=== PATIENT | female | born 1965 | race Caucasian/White ===

== ENCOUNTER 2024-03-15 21:12 | Emergency (ER) | payer OTHER ==
[2024-03-15 21:44] VITALS: BP 168/75; PULSE 75; RESP 16; TEMP 97.3; BMI 29.9
== END 2024-03-15 22:09 | disposition home or self-care (01) ==
LOC: FER 21:12
DX: L04.0 Acute lymphadenitis of face, head and neck (principal)
CPT/HCPCS: 36415; 86618; 87651; 99283-25

== ENCOUNTER 2024-07-27 18:15 | Emergency (ER) | payer OTHER ==
[2024-07-27 18:38] VITALS: BMI 28.3
[2024-07-27 18:58] VITALS: BP 160/84; PULSE 77; RESP 18; TEMP 97.8
[2024-07-27] MEDS ORDERED: CEPHALEXIN MONOHYDRATE 500 MG CAPSULE (UD) ONE (19:54)
[2024-07-27] MEDS: CEPHALEXIN MONOHYDRATE 500 MG CAPSULE (UD) PO ONE (20:01)
== END 2024-07-27 20:02 | disposition home or self-care (01) ==
LOC: FER 18:15
DX: N39.0 Urinary tract infection, site not specified (principal)
CPT/HCPCS: 81003; 87086; 87186; 99283-25

== ENCOUNTER 2025-01-25 15:21 | Inpatient (IN) | payer OTHER ==
[2025-01-25 15:53] LABS: ABSOLUTE IMMATURE GRANULOCYTES 0.01 x10^3/uL (0.0-0.031); BASOPHILS # 0.03 x10^3/uL (0.01-0.08); EOSINOPHIL % 1.9 % (0.7-5.8); HEMATOCRIT 40.3 % (34.1-44.9); HEMOGLOBIN 13.6 g/dL (11.2-15.7); MCHC 33.7 g/dl (32.2-35.5); MEAN CELL VOLUME 88.2 fl (79.4-94.8); MEAN PLT VOLUME 9.9 fl (9.4-12.3); MONOCYTE # 0.42 x10^3/uL (0.24-0.86); MONOCYTE % 7.8 % (4.7-12.5); PLATELET COUNT 149 x10^3/uL (182-369); RDW 13.7 % (12.4-16.4)
[2025-01-25 16:14] LABS: ALBUMIN 4.6 g/dl (3.4-5.0); BILIRUBIN,TOTAL 1.2 mg/dl (0.2-1); CALCIUM 9.5 mg/dl (8.5-10.1); CREATININE 0.8 mg/dl (0.6-1.3); MAGNESIUM 1.7 mg/dL (1.8-2.4); POTASSIUM 3.6 mmol/L (3.5-5.1); TOT PROT 6.8 g/dl (6.4-8.2)
[2025-01-25] MEDS ORDERED: FAMOTIDINE 20 MG TABLET ONE (16:27)
[2025-01-25] MEDS ORDERED: ACETAMINOPHEN 500 MG TABLET (FP) ONE (16:27)
[2025-01-25] MEDS ORDERED: MAG HYDROX/AL HYDROX/SIMETH 30 ML UNIT-DOSE CUP ONE (16:27)
[2025-01-25] MEDS: ACETAMINOPHEN 500 MG TABLET (FP) PO ONE (16:31)
[2025-01-25] MEDS: FAMOTIDINE 20 MG TABLET PO ONE (16:31)
[2025-01-25] MEDS: MAG HYDROX/AL HYDROX/SIMETH -MYLANTA- ORAL SUSPENSION PO ONE (16:32)
[2025-01-25] MEDS: MAGNESIUM OXIDE 400 MG TABLET (FP) PO ONE (17:09)
[2025-01-25] MEDS ORDERED: MAGNESIUM OXIDE 400 MG TABLET (FP) ONE (17:09)
[2025-01-25] MEDS ORDERED: AMOX TR/POT CLAV 875MG/125MG TABLETS (FP) ONE (18:24)
[2025-01-25] MEDS ORDERED: AZITHROMYCIN 500 MG TABLET ONE (18:24)
[2025-01-25] MEDS: AZITHROMYCIN 250 MG TABLET PO ONE (18:27)
[2025-01-25] MEDS: AMOX TR/POT CLAV 875MG/125MG TABLETS (FP) PO ONE (18:27)
[2025-01-25 19:07] LABS: HIV INTERPRETATION NEGATIVE (NEGATIVE)
[2025-01-25 19:08] LABS: HCV DIAGNOSTIC IN-HOUSE W/RFLX NON-REACTIVE (NONREACTIVE)
[2025-01-26] MEDS: SODIUM CHLORIDE 0.9% 500 ML INFUS.BAG IV ONE (00:41)
[2025-01-26] MEDS: INSULIN ASPART SLIDING SCALE (NOVOLOG) 1 VIAL SQ SCH (08:02)
[2025-01-26] MEDS: LISINOPRIL 10 MG TABLET PO SCH (09:29)
[2025-01-26] MEDS: amLODIPine BESYLATE 5 MG TABLET (FP) PO SCH (09:29)
[2025-01-26] MEDS ORDERED: LISINOPRIL 5 MG TABLET PO SCH (10:00)
[2025-01-26] MEDS: ATORVASTATIN CA 40 MG TABLET (FP) PO SCH (21:55)
[2025-01-27 08:11] LABS: ABSOLUTE IMMATURE GRANULOCYTES 0.03 x10^3/uL (0.0-0.031); BASOPHILS # 0.02 x10^3/uL (0.01-0.08); EOSINOPHIL % 2.4 % (0.7-5.8); EOSINOPHILS # 0.12 x10^3/uL (0.04-0.36); HEMATOCRIT 40.6 % (34.1-44.9); HEMOGLOBIN 13.2 g/dL (11.2-15.7); MCHC 32.5 g/dl (32.2-35.5); MEAN CELL VOLUME 88.8 fl (79.4-94.8); MEAN PLT VOLUME 10.1 fl (9.4-12.3); MONOCYTE # 0.43 x10^3/uL (0.24-0.86); MONOCYTE % 8.6 % (4.7-12.5); PLATELET COUNT 172 x10^3/uL (182-369)
[2025-01-27 08:32] LABS: POTASSIUM 3.9 mmol/L (3.5-5.1)
[2025-01-27 08:39] LABS: CALCIUM 9.9 mg/dL (8.5-10.1)
[2025-01-27 08:40] LABS: ALBUMIN 4.2 g/dl (3.4-5.0); BLOOD UREA NITROGEN 18.4 mg/dL (7-18); MAGNESIUM 1.8 mg/dL (1.8-2.4)
[2025-01-27 08:43] LABS: CREATININE 0.7 mg/dL (0.55-1.3)
[2025-01-27 08:44] LABS: BILIRUBIN,TOTAL 1.2 mg/dL (0.2-1)
[2025-01-27 11:22] LABS: INR 1.19 (0.83-1.09)
[2025-01-27] MEDS: IOHEXOL (OMNIPAQUE PO) 12 MG/ML - 500 ML BOTTLE PO ONE (12:09)
[2025-01-27] MEDS ORDERED: FENTANYL CITRATE/PF 50 MCG/ML VIAL ONE (14:45)
[2025-01-27] MEDS ORDERED: MIDAZOLAM HCL 2 MG/2 ML SINGLE DOSE VIAL ONE (14:45)
[2025-01-27] MEDS: FENTANYL CITRATE/PF 50 MCG/ML VIAL IVPUSH ONE (15:16)
[2025-01-27] MEDS: MIDAZOLAM HCL 2 MG/2 ML SINGLE DOSE VIAL IVPUSH ONE ×2 (15:16→15:24)
[2025-01-28] MEDS ORDERED: INSULIN (NOVOLOG) ASPART 100 UNITS/ML 10ML VIAL ONE ×2 (05:21→05:22)
[2025-01-28] MEDS: MAGNESIUM OXIDE 400 MG TABLET (FP) PO SCH (10:15)
[2025-01-28 11:32] VITALS: RESP 18
[2025-01-29] MEDS ORDERED: INSULIN (NOVOLOG) ASPART 100 UNITS/ML 10ML VIAL ONE (05:31)
[2025-01-29 07:10] LABS: HEMATOCRIT 38.6 % (34.1-44.9); HEMOGLOBIN 12.9 g/dL (11.2-15.7); MCHC 33.4 g/dl (32.2-35.5); MEAN CELL VOLUME 88.5 fl (79.4-94.8); MEAN PLT VOLUME 9.9 fl (9.4-12.3); PLATELET COUNT 147 x10^3/uL (182-369); RDW 13.6 % (12.4-16.4)
[2025-01-29 07:37] LABS: POTASSIUM 3.9 mmol/L (3.5-5.1)
[2025-01-29 07:39] LABS: CALCIUM 9.5 mg/dL (8.5-10.1); MAGNESIUM 1.8 mg/dL (1.8-2.4)
[2025-01-29 07:41] LABS: ALBUMIN 3.7 g/dl (3.4-5.0); BLOOD UREA NITROGEN 17.2 mg/dL (7-18)
[2025-01-29 07:43] LABS: CREATININE 0.6 mg/dL (0.55-1.3)
[2025-01-29 07:44] LABS: TOT PROT 6.5 g/dl (6.4-8.2)
[2025-01-29 15:22] VITALS: BMI 31.2
[2025-01-29 18:30] VITALS: PULSE 90
[2025-01-29 20:51] VITALS: BP 158/79; TEMP 98.9
== END 2025-01-29 20:56 | disposition home or self-care (01) | DRG 691 ==
LOC: FER 15:21 → J7W 01-26 01:00 → FER 01-26 02:03
PROVIDERS: ADMIT Hospitalist; ATTEND Physician Assistant
PROC: 0DBV3ZX Excision of Mesentery, Percutaneous Approach, Diagnostic (ICD-10-PCS; principal; 2025-01-27)
DX: C82.83 Other types of follicular lymphoma, intra-abdominal lymph nodes (principal); J90 Pleural effusion, not elsewhere classified; R18.8 Other ascites; N28.1 Cyst of kidney, acquired; E11.9 Type 2 diabetes mellitus without complications; E78.5 Hyperlipidemia, unspecified; I10 Essential (primary) hypertension; J98.11 Atelectasis; N63.0 Unspecified lump in unspecified breast; D69.6 Thrombocytopenia, unspecified; F41.9 Anxiety disorder, unspecified; E83.42 Hypomagnesemia; E80.6 Other disorders of bilirubin metabolism; R16.1 Splenomegaly, not elsewhere classified
CPT/HCPCS: 36415; 49180; 71046-TC-FY; 74177-TC; 76705-TC; 77012-TC; 80053; 81003; 81015; 82378; 82962; 83615; 83735; 84484; 85025; 85027; 85610; 85651; 86140; 86301; 86304; 86803; 87389; 88305-TC; 93005; 99285-25; Q9967

== ENCOUNTER 2025-03-07 11:07 | Emergency (ER) | payer OTHER ==
[2025-03-07 11:17] VITALS: BP 159/69; PULSE 80; RESP 19; TEMP 97.9; BMI 29.6
[2025-03-07 12:46] LABS: HEMOGLOBIN 11.3 g/dL (11.2-15.7); MEAN PLT VOLUME 10.3 fl (9.4-12.3)
[2025-03-07 12:48] LABS: HEMATOCRIT 33.5 % (34.1-44.9); MCHC 33.7 g/dl (32.2-35.5); MEAN CELL VOLUME 88.6 fl (79.4-94.8); PLATELET COUNT 136 x10^3/uL (182-369); RDW 14.5 % (12.4-16.4)
[2025-03-07 12:54] LABS: INR 0.95 (0.83-1.09); PROTHROMBIN TIME (PATIENT) 10.5 SEC (9.7-13.0)
[2025-03-07 12:56] LABS: ACTIVATED PTT 20.5 SECONDS (25.2-36.5)
[2025-03-07 13:08] LABS: POTASSIUM 4.6 mmol/L (3.5-5.1)
[2025-03-07 13:12] LABS: ALBUMIN 4.1 g/dl (3.4-5.0); CALCIUM 9.6 mg/dL (8.5-10.1); MAGNESIUM 2.2 mg/dL (1.8-2.4)
[2025-03-07 13:13] LABS: BLOOD UREA NITROGEN 36.4 mg/dL (7-18)
[2025-03-07 13:15] LABS: CREATININE 0.8 mg/dL (0.55-1.3)
[2025-03-07 13:17] LABS: BILIRUBIN,TOTAL 0.8 mg/dL (0.2-1); TOT PROT 6.7 g/dl (6.4-8.2)
[2025-03-07] MEDS ORDERED: FUROSEMIDE 20 MG TABLET (FP) ONE (14:33)
[2025-03-07] MEDS: FUROSEMIDE 20 MG TABLET (FP) PO ONE (14:35)
== END 2025-03-07 15:03 | disposition home or self-care (01) ==
LOC: JER 11:07
DX: M79.89 Other specified soft tissue disorders (principal); R07.9 Chest pain, unspecified
CPT/HCPCS: 36415; 71045-TC-FY; 80053; 83735; 83880; 84484; 85025; 85610; 85730; 93005; 93010; 93970-TC; 99285-25

== ENCOUNTER 2025-03-24 05:38 | Day surgery (SDC) | payer OTHER ==
[2025-03-21 08:33] VITALS: BMI 25.1
[2025-03-24] MEDS ORDERED: FENTANYL CITRATE/PF 50 MCG/ML VIAL ONE (11:20)
[2025-03-24] MEDS ORDERED: MIDAZOLAM HCL 2 MG/2 ML SINGLE DOSE VIAL ONE (11:20)
[2025-03-24] MEDS: FENTANYL CITRATE/PF 50 MCG/ML VIAL IVPUSH ONE (11:45)
[2025-03-24] MEDS: MIDAZOLAM HCL 2 MG/2 ML SINGLE DOSE VIAL IVPUSH ONE ×2 (11:45→12:00)
[2025-03-24] MEDS ORDERED: ceFAZolin SODIUM 1 GM VIAL ONE (11:55)
[2025-03-24] MEDS: CEFAZOLIN (F) 1 GM/D5W 1 GM/50 ML BAG IVPB ONE (11:59)
[2025-03-24 13:37] VITALS: RESP 20; TEMP 97.3
[2025-03-24 14:46] VITALS: BP 138/65; PULSE 62
== END 2025-03-24 14:02 | disposition home or self-care (01) ==
LOC: JRADIR 05:38
PROVIDERS: ATTEND Internal Medicine Hematology & Oncology
PROC: 0JH60WZ Insertion of Totally Implantable Vascular Access Device into Chest Subcutaneous Tissue and Fascia, Open Approach (ICD-10-PCS; principal; 2025-03-24)
PROC: 05H333Z Insertion of Infusion Device into Right Innominate Vein, Percutaneous Approach (ICD-10-PCS; 2025-03-24)
PROC: B51VZZA Fluoroscopy of Other Veins, Guidance (ICD-10-PCS; 2025-03-24)
DX: C85.90 Non-Hodgkin lymphoma, unspecified, unspecified site (principal)
CPT/HCPCS: 36561; 77001; C1788; 82962

== ENCOUNTER 2025-03-25 09:09 | Day surgery (SDC) | payer OTHER ==
[2025-03-25 09:33] LABS: HEMOGLOBIN 10.3 g/dL (11.2-15.7); MCHC 33.2 g/dl (32.2-35.5); MEAN CELL VOLUME 87.1 fl (79.4-94.8); MEAN PLT VOLUME 9.1 fl (9.4-12.3); PLATELET COUNT 297 x10^3/uL (182-369); RDW 14.6 % (12.4-16.4)
[2025-03-25 09:52] LABS: ALBUMIN 4.6 g/dl (3.4-5.0)
[2025-03-25 09:56] LABS: BILIRUBIN,DIRECT 0.3 mg/dL (0.0-0.2)
[2025-03-25 09:58] LABS: BILIRUBIN,TOTAL 0.8 mg/dL (0.2-1); TOT PROT 7.6 g/dl (6.4-8.2)
[2025-03-25 10:07] LABS: CHLORIDE 106 mmol/L (98-107); POTASSIUM 4.1 mmol/L (3.5-5.1); SODIUM 140 mmol/L (136-145)
[2025-03-25 10:09] LABS: ANION GAP 9 mmol/L (4-13); BLOOD UREA NITROGEN 17.3 mg/dL (7-18); CO2 25 mmol/L (21-32)
[2025-03-25 10:10] LABS: GLUCOSE,RANDOM 199 mg/dL (74-106)
[2025-03-25 10:11] LABS: CALCIUM 10.2 mg/dL (8.5-10.1)
[2025-03-25 10:13] LABS: CREATININE 0.8 mg/dL (0.55-1.3); PHOSPHOROUS 3.7 mg/dL (2.5-4.9)
[2025-03-25 10:16] LABS: LDH 258 U/L (84-246)
[2025-03-25] MEDS: SODIUM CHLORIDE 1,000 ML IV ONE (10:27)
[2025-03-25] MEDS: FOSAPREPITANT DIMEGLUMINE 150 MG in SODIUM CHLORIDE 145 ML IVPB ONE (10:56)
[2025-03-25] MEDS: ACETAMINOPHEN 325 MG TABLET (FP) PO ONE (11:02)
[2025-03-25] MEDS: diphenhydrAMINE HCL 25 MG CAPSULE (FP) PO ONE (11:02)
[2025-03-25] MEDS: predniSONE 20 MG TABLET (UD) PO ONE (11:02)
[2025-03-25] MEDS: SODIUM CHLORIDE IVPB ONE (11:45)
[2025-03-25] MEDS: PALONOSETRON HCL 0.25 MG/5 ML VIAL IVPUSH ONE (11:45)
[2025-03-25] MEDS: RITUXIMAB PVVR IVPB ONE (11:45)
[2025-03-25] MEDS: CYCLOPHOSPHAMIDE IVPB ONE (15:11)
[2025-03-25] MEDS: [UNRECOGNIZED DRUG - OTHER] IVPB ONE (15:11)
[2025-03-25] MEDS: DOXOrubicin HCL 50 MG/25 ML VIAL IV ONE (15:48)
[2025-03-25] MEDS: vinCRIStine SULFATE 2 MG in SODIUM CHLORIDE 25 ML IVPB ONE (16:03)
[2025-03-25] MEDS: PORTA CATH FLUSH 10 ML IVPUSH PRN (16:10)
[2025-03-25 16:20] VITALS: BP 129/59; PULSE 68; RESP 20
[2025-03-25 16:33] VITALS: TEMP 98
== END 2025-03-25 16:30 | disposition home or self-care (01) ==
LOC: JONCCHEMO 09:09 → J7W 09:10 → JONCCHEMO 16:30
PROVIDERS: ATTEND Internal Medicine Hematology & Oncology
DX: Z51.11 Encounter for antineoplastic chemotherapy (principal); C82.13 Follicular lymphoma grade II, intra-abdominal lymph nodes
CPT/HCPCS: 36415; 80048; 80076; 83615; 84100; 84550; 85025; 96367; 96375; 96411; 96413; 96415; 96417; J1453; J9074; J9370; Q5119

== ENCOUNTER 2025-03-26 15:07 | Day surgery (SDC) | payer OTHER ==
[2025-03-26] MEDS: PEGFILGRASTIM-CBQV (UDENYCA) 6 MG/0.6 ML SYRINGE SQ ONE (15:16)
[2025-03-26 19:13] VITALS: BP 144/62; PULSE 72; RESP 20; TEMP 97.6
== END 2025-03-26 15:25 | disposition home or self-care (01) ==
LOC: J7W 15:07 → JONCCHEMO 15:07
PROVIDERS: ATTEND Internal Medicine Hematology & Oncology
PROC: 3E013GC Introduction of Other Therapeutic Substance into Subcutaneous Tissue, Percutaneous Approach (ICD-10-PCS; principal; 2025-03-26)
DX: C82.13 Follicular lymphoma grade II, intra-abdominal lymph nodes (principal); Z76.89 Persons encountering health services in other specified circumstances
CPT/HCPCS: 96372; Q5111

== ENCOUNTER 2025-04-15 10:00 | Day surgery (SDC) | payer OTHER ==
[2025-04-15 10:12] LABS: ABSOLUTE IMMATURE GRANULOCYTES 0.15 x10^3/uL (0.0-0.031); BASOPHILS # 0.05 x10^3/uL (0.01-0.08); EOSINOPHIL % 0.1 % (0.7-5.8); EOSINOPHILS # 0.01 x10^3/uL (0.04-0.36); MCHC 32.9 g/dl (32.2-35.5); MEAN CELL VOLUME 93.1 fl (79.4-94.8); MEAN PLT VOLUME 9.2 fl (9.4-12.3); MONOCYTE # 0.65 x10^3/uL (0.24-0.86); MONOCYTE % 7.2 % (4.7-12.5); RDW 21.5 % (12.4-16.4)
[2025-04-15 10:36] LABS: CO2 23 mmol/L (21-32)
[2025-04-15 10:37] LABS: GLUCOSE,RANDOM 240 mg/dL (74-106)
[2025-04-15 10:39] LABS: CREATININE 1.0 mg/dL (0.55-1.3); SGOT/AST 16 U/L (15-37); SGPT/ALT 24 U/L (13-61)
[2025-04-15 10:40] LABS: TOT PROT 7.0 g/dl (6.4-8.2)
[2025-04-15 10:41] LABS: ALK PHOS 104 U/L (45-117)
[2025-04-15] MEDS: SODIUM CHLORIDE 1,000 ML IV ONE (11:04)
[2025-04-15] MEDS: FOSAPREPITANT DIMEGLUMINE 150 MG in SODIUM CHLORIDE 145 ML IVPB ONE (11:04)
[2025-04-15] MEDS: predniSONE 20 MG TABLET (UD) PO ONE (11:21)
[2025-04-15] MEDS: ACETAMINOPHEN 325 MG TABLET (FP) PO ONE (11:21)
[2025-04-15] MEDS: diphenhydrAMINE HCL 25 MG CAPSULE (FP) PO ONE (11:22)
[2025-04-15] MEDS: PALONOSETRON HCL 0.25 MG/5 ML VIAL IVPUSH ONE (11:22)
[2025-04-15] MEDS: RITUXIMAB PVVR IVPB ONE (12:19)
[2025-04-15] MEDS: SODIUM CHLORIDE IVPB ONE (12:19)
[2025-04-15] MEDS: CYCLOPHOSPHAMIDE IVPB ONE (15:14)
[2025-04-15] MEDS: [UNRECOGNIZED DRUG - OTHER] IVPB ONE (15:14)
[2025-04-15] MEDS: DOXOrubicin HCL 50 MG/25 ML VIAL IV ONE (16:00)
[2025-04-15] MEDS: vinCRIStine SULFATE 2 MG in SODIUM CHLORIDE 25 ML IVPB ONE (16:00)
[2025-04-15 18:23] VITALS: BP 98/58; PULSE 98; RESP 20; TEMP 97.9
[2025-04-15] MEDS ORDERED: PORTA CATH FLUSH 10 ML IVPUSH PRN (18:23)
== END 2025-04-15 16:30 | disposition home or self-care (01) ==
LOC: JONCCHEMO 10:00 → J7W 10:40 → JONCCHEMO 16:30
PROVIDERS: ATTEND Internal Medicine Hematology & Oncology
PROC: 3E013GC Introduction of Other Therapeutic Substance into Subcutaneous Tissue, Percutaneous Approach (ICD-10-PCS; principal; 2025-04-15)
DX: C82.13 Follicular lymphoma grade II, intra-abdominal lymph nodes (principal); Z76.89 Persons encountering health services in other specified circumstances
CPT/HCPCS: 36415; 80048; 80076; 85025; 96372; J1453; J9074; J9370; Q5119

== ENCOUNTER 2025-04-16 15:15 | Day surgery (SDC) | payer OTHER ==
[2025-04-16] MEDS: PEGFILGRASTIM-CBQV (UDENYCA) 6 MG/0.6 ML SYRINGE SQ ONE (15:12)
[2025-04-16 19:04] VITALS: BP 121/55; PULSE 70; RESP 20; TEMP 98
== END 2025-04-16 15:35 | disposition home or self-care (01) ==
LOC: JONCCHEMO 15:15 → J7W 15:36
PROVIDERS: ATTEND Internal Medicine Hematology & Oncology
PROC: 3E013GC Introduction of Other Therapeutic Substance into Subcutaneous Tissue, Percutaneous Approach (ICD-10-PCS; principal; 2025-04-16)
DX: C82.13 Follicular lymphoma grade II, intra-abdominal lymph nodes (principal); Z76.89 Persons encountering health services in other specified circumstances
CPT/HCPCS: 96372; Q5111

== ENCOUNTER 2025-05-13 09:49 | Day surgery (SDC) | payer OTHER ==
[2025-05-13 10:41] LABS: MCHC 32.9 g/dl (32.2-35.5); MEAN CELL VOLUME 98.4 fl (79.4-94.8); MEAN PLT VOLUME 9.4 fl (9.4-12.3)
[2025-05-13] MEDS: SODIUM CHLORIDE 1,000 ML IV ONE (10:49)
[2025-05-13 11:07] LABS: CO2 24.0 mmol/L (21-32); GLUCOSE,RANDOM 212.0 mg/dL (74-106)
[2025-05-13 11:10] LABS: CREATININE 0.9 mg/dL (0.55-1.3); SGOT/AST 20.0 U/L (15-37); SGPT/ALT 35.0 U/L (13-61)
[2025-05-13 11:11] LABS: LDH 287.0 U/L (84-246); TOT PROT 6.9 g/dl (6.4-8.2)
[2025-05-13 11:12] LABS: ALK PHOS 121.0 U/L (45-117)
[2025-05-13] MEDS: predniSONE 20 MG TABLET (UD) PO ONE (11:33)
[2025-05-13] MEDS: FOSAPREPITANT DIMEGLUMINE 150 MG in SODIUM CHLORIDE 145 ML IVPB ONE (11:33)
[2025-05-13] MEDS: diphenhydrAMINE HCL 25 MG CAPSULE (FP) PO ONE (11:33)
[2025-05-13] MEDS: ACETAMINOPHEN 325 MG TABLET (FP) PO ONE (11:35)
[2025-05-13] MEDS: PALONOSETRON HCL 0.25 MG/5 ML VIAL IVPUSH ONE (12:08)
[2025-05-13] MEDS: SODIUM CHLORIDE IVPB ONE ×2 (12:16→14:55)
[2025-05-13] MEDS: RITUXIMAB PVVR IVPB ONE (12:16)
[2025-05-13] MEDS: CYCLOPHOSPHAMIDE IVPB ONE (14:55)
[2025-05-13 15:09] VITALS: TEMP 98.5
[2025-05-13 15:10] VITALS: BP 107/57; PULSE 81; RESP 20
[2025-05-13] MEDS: DOXOrubicin HCL 50 MG/25 ML VIAL IV ONE (15:33)
[2025-05-13] MEDS: vinCRIStine SULFATE 2 MG in SODIUM CHLORIDE 25 ML IVPB ONE (15:47)
[2025-05-13] MEDS: PORTA CATH FLUSH 10 ML IVPUSH PRN (16:53)
== END 2025-05-13 16:54 | disposition home or self-care (01) ==
LOC: JONCCHEMO 09:49 → J7W 09:50 → JONCCHEMO 16:54
PROVIDERS: ATTEND Internal Medicine Hematology & Oncology
DX: Z51.11 Encounter for antineoplastic chemotherapy (principal); C82.13 Follicular lymphoma grade II, intra-abdominal lymph nodes
CPT/HCPCS: 36415; 80048; 80076; 83615; 84100; 84550; 85025; 96367; 96375; 96411; 96413; 96415; 96417; J1453; J9074; J9370; Q5119

== ENCOUNTER 2025-05-14 14:35 | Day surgery (SDC) | payer OTHER ==
[2025-05-14] MEDS: PEGFILGRASTIM-CBQV (UDENYCA) 6 MG/0.6 ML SYRINGE SQ ONE (14:47)
[2025-05-14 15:13] VITALS: BP 127/41; PULSE 75; RESP 18; TEMP 97.9
== END 2025-05-14 15:00 | disposition home or self-care (01) ==
LOC: JONCCHEMO 14:35 → J7W 14:37 → JONCCHEMO 15:00
PROVIDERS: ATTEND Internal Medicine Hematology & Oncology
PROC: 3E013GC Introduction of Other Therapeutic Substance into Subcutaneous Tissue, Percutaneous Approach (ICD-10-PCS; principal; 2025-05-14)
DX: C82.13 Follicular lymphoma grade II, intra-abdominal lymph nodes (principal); Z76.89 Persons encountering health services in other specified circumstances
CPT/HCPCS: 96372; Q5111